=== PATIENT | female | born 1965 | race Caucasian/White ===

== ENCOUNTER 2017-08-31 01:01 | Emergency (ER) | payer OTHER ==
[~2017-08-31] VITALS: Ht 154.9 cm; Wt 81.8 kg
[2017-08-31] MEDS ORDERED: PredniSONE 20 MG TABLET PO ONE (02:00)
[2017-08-31] MEDS ORDERED: DiphenhydrAMINE HCL 25 MG CAPSULE PO ONE (02:00)
[2017-08-31 02:05] VITALS: BP 129/88
== END 2017-08-31 02:06 | disposition home or self-care (01) ==
LOC: EMS 01:03
DX: T78.40XA Allergy, unspecified, initial encounter (principal); X58.XXXA Exposure to other specified factors, initial encounter
CPT/HCPCS: 99283; J7512

== ENCOUNTER 2022-04-30 16:24 | Emergency (ER) | payer OTHER ==
[~2022-04-30] VITALS: Ht 165.1 cm; Wt 72.7 kg
[2022-04-30] MEDS ORDERED: BACLOFEN 10 MG TABLET PO ONE (17:15)
[2022-04-30] MEDS ORDERED: KETOROLAC TROMETHAMINE 60 MG/2 ML VIAL IM ONE (17:15)
[2022-04-30 20:32] VITALS: BP 110/68
== END 2022-04-30 20:33 | disposition home or self-care (01) ==
LOC: EMS 16:25
DX: M25.512 Pain in left shoulder (principal)
CPT/HCPCS: 99283; 96372; J1885

== ENCOUNTER 2023-04-09 16:42 | Emergency (ER) | payer OTHER ==
[~2023-04-09] VITALS: Ht 160 cm; Wt 89.1 kg
[2023-04-09] MEDS ORDERED: GABA-1181 PO (16:44)
[2023-04-09 17:28] LABS: APPEARANCE,URINE CLEAR (CLEAR); BILIRUBIN,URINE NEGATIVE (NEGATIVE); COLOR,URINE YELLOW (YELLOW); GLUCOSE, URINE (UA) NEGATIVE (NEGATIVE); KETONES,URINE NEGATIVE (NEGATIVE); LEUKOCYTE ESTERASE ,URINE MODERATE (NEGATIVE); NITRATE,URINE NEGATIVE (NEGATIVE); OCCULT BLOOD,URINE NEGATIVE (NEGATIVE); PH,URINE 5.5 (5.0-8.0); PROTEIN,URINE TRACE mg/dL (NEGATIVE); SPECIFIC GRAVITIY, URINE 1.025 (1.003-1.030); UROBILINOGEN,URINE <=1.0 mg/dL (<=1.0)
[2023-04-09 17:36] LABS: BASOPHILS % (AUTO) 0.2 % (0.0-2.0); EOSINOPHILS % (AUTO) 0.4 % (1.0-6.0); HEMATOCRIT 39.1 % (36-46); LYMPHOCYTES % (AUTO) 14.7 % (22.0-44.0); MEAN CORPUSCULAR HEMOGLOBIN 33.7 pg (26.0-34.0); MEAN CORPUSCULAR HGB CONC 35.8 G/dL (31.0-37.0); MEAN CORPUSCULAR VOLUME 94 fL (80-100); MONOCYTES # (AUTO) 0.4 K/uL (0.1-1.0); MONOCYTES % (AUTO) 5.6 % (2.0-9.0); NEUTROPHILS # (AUTO) 5.6 K/uL (1.8-7.7); NEUTROPHILS % (AUTO) 79.1 % (40.0-70.0); PLATELET COUNT (AUTO) 252 K/uL (150-450); RED BLOOD CELL COUNT(AUTO) 4.15 MIL/uL (4.00-5.20); RED CELL DISTRIBUTION WIDTH 12.7 % (11.5-14.5)
[2023-04-09 17:46] LABS: ANION GAP 4 mmol/L (8-16); CALCIUM, TOTAL 8.8 mg/dL (8.8-10.5); CARBON DIOXIDE 29 mmol/L (22-29); CHLORIDE 101 mmol/L (98-107); CREATININE 0.85 mg/dL (0.60-1.30); GLOMERULAR FILTR. RATE CALC > 60 mL/min (>60); GLUCOSE,RANDOM 109 mg/dL (70-110); POTASSIUM 3.5 mmol/L (3.5-5.1); SODIUM SERUM 134 mmol/L (136-145); UREA NITROGEN, BLOOD 12 mg/dL (7-18)
[2023-04-09 17:51] LABS: ALANINE AMINOTRANSFERASE 38 U/L (12-78); ALBUMIN 3.7 g/dL (3.4-5.0); ALKALINE PHOSPHATASE 245 U/L (46-116); ASPARTATE AMINOTRANSFERASE 29 U/L (15-37); BILIRUBIN,TOTAL 0.7 mg/dL (0.1-1.0); LIPASE 33 U/L (16-77); TOTAL PROTEIN, SERUM 7.9 g/dL (6.4-8.2)
[2023-04-09 17:53] LABS: TROPONIN I-HIGH SENSITIVITY 4 ng/L (<51)
[2023-04-09 17:56] LABS: BACTERIA,URINE Few /HPF (None Seen); RBC,URINE 0-2 /HPF (0-2); SQUAMOUS EPITHELIAL CELL,UR Few /LPF (None Seen)
[2023-04-09] MEDS ORDERED: PB/HYOSCY/ATR/SCOP/LIDO/MAALOX 55 ML BOTTLE PO ONE (18:00)
[2023-04-09] MEDS ORDERED: SODIUM CHLORIDE 0.9% 100 ML ONE (18:17)
[2023-04-09] MEDS ORDERED: IOHEXOL 350 MG/ML 100 ML VIAL ONE (18:17)
[2023-04-09 18:40] VITALS: TEMP 98.6
[2023-04-09 19:23] VITALS: BP 117/64; PULSE 99; RESP 18
[2023-04-09] MEDS ORDERED: CEPH-558 PO (19:23)
[2023-04-09] MEDS ORDERED: CEPHALEXIN MONOHYDRATE 500 MG CAPSULE PO ONE (19:30)
== END 2023-04-09 19:36 | disposition home or self-care (01) ==
LOC: EMS 16:44
DX: N39.0 Urinary tract infection, site not specified (principal); R10.32 Left lower quadrant pain; R10.31 Right lower quadrant pain
CPT/HCPCS: 99285; 74177; 80053; 81001; 83690; 84484; 85025; 36415; 87086; 87186; 93005; Q9967; J7050